=== PATIENT | male | born 1995 | race Caucasian/White ===

== ENCOUNTER 2021-12-22 02:52 | Observation (INO) | payer OTHER ==
[~2021-12-22] VITALS: Wt 81.8 kg
[2021-12-22 04:46] LABS: BASOPHILS ABSOLUTE AUTO 0.01 K/mm3 (0.00-0.23); BASOPHILS PERCENT AUTO 0 % (0-2); EOSINOPHILS PERCENT AUTO 0 % (0-6); Hematocrit 39.6 % (37.0-53.0); Hemoglobin 13.6 g/dL (13.5-17.5); IMMATURE GRAN ABSOLUTE AUTO 0.03 K/mm3 (0.00-0.10); IMMATURE GRAN PERCENT AUTO 0 % (0-1); LYMPHOCYTES ABSOLUTE AUTO 1.19 K/mm3 (0.84-5.20); LYMPHOCYTES PERCENT AUTO 9 % (21-46); MONOCYTES ABSOLUTE AUTO 1.52 K/mm3 (0.16-1.47); MONOCYTES PERCENT AUTO 12 % (4-13); Mean Corpuscular HGB 29.8 pg (26.0-34.0); Mean Corpuscular HGB Conc 34.3 g/dL (31.5-36.5); Mean Corpuscular Volume 87 fL (80-100); NEUTROPHILS ABSOLUTE AUTO 10.39 K/mm3 (1.96-9.15); NEUTROPHILS PERCENT AUTO 79 % (41-73); Platelet Count 214 K/mm3 (150-400); RDW Coefficient Variation 11.8 % (11.7-14.2); RDW Standard Deviation 37.3 fL (35.1-46.3); Red Blood Cell Count 4.57 M/mm3 (4.30-5.90); White Blood Cell Count 13.14 K/mm3 (4.00-11.30)
[2021-12-22 05:05] LABS: Alanine Aminotransfer (ALT/SGP 343 U/L (12-78); Albumin, Blood 3.1 g/dL (3.4-5.0); Alk Phos 72 U/L (50-136); Anion Gap 6 mmol/L (6-16); Aspartate Aminotrans (AST/SGOT 298 U/L (12-37); Bilirubin, Total 0.6 mg/dL (0.1-1.0); Blood Urea Nitrogen 21 mg/dL (8-24); Bun/Creatinine Ratio 18.6 (12.0-20.0); CO2, Blood 25 mmol/L (21-32); Chloride, Blood 111 mmol/L (98-108); Creatinine, Blood 1.13 mg/dL (0.60-1.20); Glomerular Filtration Rate >60 (60-); Glucose, Blood 112 mg/dL (70-99); Potassium, Blood 4.7 mmol/L (3.5-5.5); Sodium, Blood 142 mmol/L (136-145); Total Protein, Blood 6.1 g/dL (6.4-8.2)
--- NOTE | 2021-12-22 06:40 | NUR ---
INFORMATION IN THIS PARAGRAPH OBTAINED DURING REPORT FROM [facility] RN IN THE ER. PER REPORT, PT BROUGHT IN BY EMS TO THEIR ER. [facility] REPORTS HEARING MOANING NOISES COMING FROM PTS APARTMENT, THESE NOISES CONTINUED ON FOR APPROX 16 HRS. [facility] WAS CONCERNED AND ENTERED APARTMENT TO FIND PT MASTURBATING NEXT TO INDIVIDUAL. PT ARRIVED VIA EMS A DIRECT ADMIT FROM [facility] TO ICU BED VIA SLIDER SHEET. INITIALLY PT WOULD OPEN EYES TO [facility] BUT WOULD NOT FOLLOW COMMANDS NOR COMMUNICATE WITH NURSE. PT SPONTANEOUSLY MOVING ALL EXTREMITIES. ON RA c O2 SATS >92%. 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 BP STABLE. PT SLOWLY BECAME MORE ALERT THE MORNING CARRIED ON. PT STILL NOT FOLLOWING COMMANDS NOR ANSWERING QUESTIONS APPROPRATELY. THIS NURSE IN ROOM TO REASSESS PT, DURING THAT TIME PT WAVED HIS HANDS AND STATED "I AM DONE WITH THIS". THIS NURSE ASKED WHAT HE MEANS AND PT RESPONDED WITH "YOU WANT TO KILL ME". PT LURKED TOWARD STAFF WHILE IN BED WHEN HE STATED THAT. IN RESPONSE PT PLACED IN WRIST RESTRAINTS DUE TO UNPREDICTABLE BEHAVIOR THAT COULD RESULT IN DANGER TO PT. PT NOT REDIRECTABLE NOR PREDICTABLE AT THIS TIME.
[2021-12-22 07:40] LABS: Source, Urine Straight Cath
[2021-12-22 08:12] LABS: Appearance, Urine Clear (Clear); Bilirubin, Urine Neg (Neg); Blood, Urine Neg (Neg); Color, Urine Yellow (P-Yellow); Glucose Qualitative, Urine Neg (Neg); Ketones, Urine 1+ (Neg); Leukocyte Esterase, Urine Neg (Neg); Nitrite, Urine Neg (Neg); Protein, Urine 1+ (Neg); Specific Gravity, Urine 1.015 (1.003-1.022); Urobilinogen, Urine NORM (Normal)
--- NOTE | 2021-12-22 11:45 | NUR ---
Deepika Mak ([phone]) called unit for update on patient. Patient did not recognize name of caller. 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 She states that Alberto does not live on her property, however he often comes over to visit [place]. States that Alberto and Ray often do drugs togother and they overdosed last month which led to [place] resuscitating Alberto. When asked which substances the boys ingest, Deepika states she has no specific knowledge. Deepika states she does not have any contact information on emergency contacts or family members for Alberto.
--- NOTE | 2021-12-22 11:59 | NUR ---
ASSUMED CARE OF PT, REPORT RCV'D FROM EDWINA [facility]. PT ALERT TO SELF, CONFUSED TO LOCATION/SITUATION. PT EXHIBITS LABILE BEHAVIOR. REMAINS IN BILATERAL TOUGH CUFFS D/T CONFUSION, OCCASIONAL AGGRESSIVE BEHAVIOR, PULLING AT LINES/CORDS AND ATTEMPTING TO UNSAFELY AMBULATE. PT UNABLE TO RECALL INCIDENT LEADING UP TO ADMISSION. PT DENIES HAVING FAMILY TO CONTACT, REQUESTS NURSE CALL "SVETLANA" BUT UNABLE TO RECALL PHONE NUMBER. PT'S ONLY BELONGINGS ARE PAIR OF SOCKS. VIGIL PLACED D/T INCONTINENCE, INITIAL URINE RETURN FOLLOWED BY BLOOD- CATHETER REPLACED WITH COUDE, BLEEDING AROUND MEATUS. PT HAS BURN VARMA TO BILATERAL POSTERIOR THIGHS (PICTURES IN CHART), PT UNABLE TO RECALL WHAT HAPPENED. TRISTIAN NEFF ([phone]) CALLED, PER CALLER SHE IS "ROOMMATE" [facility]-SEE PREVIOUS NOTES REGARDING CONVERSATION. SEE SHIFT ASSESSMENT.
--- NOTE | 2021-12-22 18:17 | NUR ---
SHIFT SUMMARY PT MENTATION CLEARING THIS AFTERNOON. PT ABLE TO RECALL PLACE/SITUATION AFTER ORIENTATION. REQUESTED THIS NURSE TO CALL HIS FATHER PAUL ([phone]) IN [place] WHO REQUESTED EX-GIRLFRIEND TAMIKO ([phone]) COME FROM [place] TO PICK PATIENT UP. PT ENCOURAGED TO REMAIN IN HOSPITAL, REVIEWED POTENTIAL RISKS ASSOCIATED WITH LEAVING AMA. TAMIKO COMING FROM [place] AT THIS TIME, PT STATES HE "DOESN'T KNOW" IF HE PLANS ON LEAVING AMA WHEN SHE GETS HERE. RESTRAINTS REMOVED AND PT COOPERATIVE WITH CARE AT THIS TIME. 1200 ML BLOOD TINGED URINARY OUTPUT. VSS T/O SHIFT. WILL REPORT TO ONCOMING NURSE.
--- NOTE | 2021-12-22 20:00 | NUR ---
ASSUMED CARE OF PT AT 1900. REPORT RECEIVED. PT PRESENTS IN BED SLEEPING. HAS BEEN OUT OF RESTRAINTS FROM EARLIER THIS DAY. NO S/S OF PT PULLING AT LINES AT THIS TIME. PT AWAKENS EASILY. APPROPRIATE IN REQUESTS. WILL REVIEW CHART AND PLAN OF CARE FOR THIS PT.
--- NOTE | 2021-12-22 22:30 | NUR ---
DR GOMEZ COMES TO UNIT TO DISCUSS PT'S CARE AND PLAN. SHE REQUESTS THAT PT BE LEFT UNDISTURBED TO SLEEP THIS SHIFT. CARDIAC MONITORING TO BE DISCONTINUED, AND TO DISCONTINUE CATHETER. ADDING THAT IF PT WAS SLEEPING CATHETER COULD BE REMOVED LATER. IV FLUIDS PLACE TO TKO. WILL CONTINUE TO MONITOR PT.
--- NOTE | 2021-12-23 02:20 | NUR ---
PT AWAKENS AND IS APPROPRIATE. DISCUSSED WITH PT DR GOMEZ'S ORDERS. HE WAS GRATEFUL TO HAVE CATHETER REMOVED. IV SALINE LOCKED, AND TELEMETRY REMOVED. PT STATES THAT HE DOES WANT TO BE ABLE TO JUST SLEEP THIS NIGHT.
--- NOTE | 2021-12-23 06:30 | NUR ---
PT AWAKENS THIS MORNING AND IS ALERT AND COOPERATIVE WITH CARE. AM LABS DRAWN. PT HAS VOIDED Q.S POST HAVING VIGIL CATHETER REMOVED. WILL CONTINUE TO MONITOR PT, AND WILL REPORT OFF TO ONCOMING RN.
[2021-12-23 07:12] LABS: BASOPHILS ABSOLUTE AUTO 0.02 K/mm3 (0.00-0.23); BASOPHILS PERCENT AUTO 0 % (0-2); EOSINOPHILS ABSOLUTE AUTO 0.01 K/mm3 (0.00-0.68); EOSINOPHILS PERCENT AUTO 0 % (0-6); Hematocrit 39.8 % (37.0-53.0); Hemoglobin 13.8 g/dL (13.5-17.5); IMMATURE GRAN ABSOLUTE AUTO 0.03 K/mm3 (0.00-0.10); IMMATURE GRAN PERCENT AUTO 0 % (0-1); LYMPHOCYTES ABSOLUTE AUTO 1.28 K/mm3 (0.84-5.20); LYMPHOCYTES PERCENT AUTO 12 % (21-46); MONOCYTES PERCENT AUTO 10 % (4-13); Mean Corpuscular HGB 30.1 pg (26.0-34.0); Mean Corpuscular HGB Conc 34.7 g/dL (31.5-36.5); Mean Corpuscular Volume 87 fL (80-100); Mean Platelet Volume 10.3 fL (9.1-12.4); NEUTROPHILS ABSOLUTE AUTO 8.22 K/mm3 (1.96-9.15); NEUTROPHILS PERCENT AUTO 77 % (41-73); Platelet Count 255 K/mm3 (150-400); RDW Coefficient Variation 11.8 % (11.7-14.2); RDW Standard Deviation 37.5 fL (35.1-46.3); Red Blood Cell Count 4.58 M/mm3 (4.30-5.90); White Blood Cell Count 10.66 K/mm3 (4.00-11.30)
[2021-12-23 07:48] LABS: Alanine Aminotransfer (ALT/SGP 239 U/L (12-78); Albumin, Blood 3.1 g/dL (3.4-5.0); Alk Phos 73 U/L (50-136); Anion Gap 5 mmol/L (6-16); Aspartate Aminotrans (AST/SGOT 180 U/L (12-37); Bilirubin, Total 0.7 mg/dL (0.1-1.0); Blood Urea Nitrogen 12 mg/dL (8-24); Bun/Creatinine Ratio 13.7 (12.0-20.0); CO2, Blood 28 mmol/L (21-32); Calcium, Blood 8.1 mg/dL (8.5-10.1); Chloride, Blood 110 mmol/L (98-108); Creatinine, Blood 0.88 mg/dL (0.60-1.20); Globulin, Blood 3.1 g/dL (2.2-4.0); Glomerular Filtration Rate >60 (60-); Glucose, Blood 96 mg/dL (70-99); Sodium, Blood 143 mmol/L (136-145); Total Protein, Blood 6.2 g/dL (6.4-8.2)
[2021-12-23 07:53] LABS: CPK Creatine Kinase 4291 U/L (39-308)
--- NOTE | 2021-12-23 08:00 | NUR ---
TOOK OVER CARE OF PT AT 0715. PT RESTING ON RA. WHEN TRYING TO ASSESS PT THEY STATED "I DON'T WANT TO DO THIS OR ANSER THOSE QUESTIONS, I JUST WANT TO SLEEP". PT DOES NOT SEEM TO BE IN ACUTE DISTRESS AT THIS TIME.
== END 2021-12-23 12:27 | disposition home or self-care (01) ==
LOC: ICUE 02:52
PROVIDERS: Student in an Organized Health Care Education/Training Program; ADMIT Internal Medicine
DX: G92.8 Other toxic encephalopathy (principal); M62.82 Rhabdomyolysis; R79.89 Other specified abnormal findings of blood chemistry; R74.8 Abnormal levels of other serum enzymes; R74.02 Elevation of levels of lactic acid dehydrogenase [LDH]; E87.5 Hyperkalemia; J98.2 Interstitial emphysema; N28.9 Disorder of kidney and ureter, unspecified; S02.91XA Unspecified fracture of skull, initial encounter for closed fracture
CPT/HCPCS: 36415; 51700; 51701; 51703; 80053; 82550; 83605; 84484; 85025; J7030